=== PATIENT | male | born 1935 | race Caucasian/White ===

== ENCOUNTER 2023-01-12 06:25 | Inpatient (IN) | payer MEDICARE, OTHER ==
[~2023-01-12] VITALS: Ht 190.5 cm; Wt 88.3 kg
[~2023-01-12 06:25] MED LIST: ADVIL PM CAPLE1 EACH PO; ALEVE220 MG PO; AMIODARONE HCL200 MG PO; APRISO0.375 GM PO; ASACOL HD800 MG PO; ASPIR 8181 MG PO; ATORVASTATIN CA10 MG PO; CEFDINIR300 MG PO; CENTRUM SILVER1 EAC3 PO; CIPRO500 MG PO; CIPROFLOXACIN500 MG PO; COUMADIN5 MG PO; DIGITEK125 MCG PO; DOXYCYCLINE HY100 M3 PO; FINASTERIDE5 MG PO; FLONASE ALLERG9.9 ML NAS; FLUTICASONE-SA1 EAC4 INH; I-VITE TABLET1 EAC1 PO; LEVALBUTEROL TA15 GM INH; LOPERAMIDE2 MG PO; METOPROLOL SUCC25 MG PO; METOPROLOL SUCC50 MG PO; METRONIDAZOLE500 MG PO; NYSTATIN100000 UN1 MM; OMEPRAZOLE20 MG PO; PREDNISONE10 MG PO; TYLENOL SO500 MG/15 PO; VENTOLIN HFA18 GM INH; WARFARIN SODIUM5 MG PO; ZYRTEC10 M3 PO
[2023-01-12] MEDS ORDERED: TRELEGY ELLIPT1 EACH INH (06:52)
[2023-01-12] MEDS ORDERED: TOPROL XL50 MG PO (07:25)
--- NOTE | 2023-01-12 07:27 | EKG ---
[facility] [address] [place], [place] [address] Signed Sinus tachycardia with occasional premature ventricular complexes Left axis deviation Incomplete right bundle branch block Inferior infarct , age undetermined ST \T\ T wave abnormality, consider anterolateral ischemia Abnormal ECG No previous ECGs available Confirmed by GASTON SAEED MD ([id number]) on 01/12/2023 7:27:37 AM Electronically Signed By: GASTON SAEED MD 01/12/23 0727 PATIENT NAME: LINDSAY MOSQUEDA ROSA Electrocardiogram DATE OF : 39 PHYSICIAN: GASTON SAEED MD REPORT #: [id number] REPORT IS CONFIDENTIAL AND NOT TO BE RELEASED WITHOUT AUTHORIZATION
--- NOTE | 2023-01-12 10:00 | NUR ---
PT BROUGHT OVER TO ROOM 108 ON MED SURGE VIA STRETCHER BY THIS RN, PT REMIANED ON CARDIAC MONITORING AND O2 WHILE TRANSPORTED. RECEIVED BEDSIDE REPORT FROM ANAHI El RN. PTS GRANDDAUGHTER ACCOMPANIED PT TO THE ROOM TO ASSIST IN ANSWERING QUESTIONS, PT IS ALERT AND ORIENTED AND ANSWERS QUESTIONS APPROPRIATLEY. BELONGSINGS SENT IN BAG.
[2023-01-12 10:08] VITALS: BP 101/68
--- NOTE | 2023-01-12 10:30 | NUR ---
PLACED ON TELE #4
[2023-01-12] MEDS ORDERED: LEVALBUTER0.63 MG/3 INH (11:13)
--- NOTE | 2023-01-12 11:31 | NUR ---
PT'S FAMILY MEMBERS HAVE LEFT, PT BELIEVES HE "MAY WANT TO TAKE A NAP" PT HAS CALL LIGHT IN REACH AND INSRUCTED ON USE, RAILS UP. REMAINS ON TELE AND OXYGEN 3L OXYMASK.
--- NOTE | 2023-01-12 12:36 | NUR ---
PT HAS REPORTED HE WAS ABLE TO TAKE A NAP, HAS LUNCH TRAY AND IS ACTIVELY EATING AT THIS TIME, CONTINUES TO DENY NEED TO VOID. DENIES NAUSEA OR PAIN.
[2023-01-12 14:27] VITALS: BP 108/70
--- NOTE | 2023-01-12 14:51 | NUR ---
in room to start iv abx, pt was asleep but woke up easily. asked pt if feels like he can void yet says "don't think so don't feel like it" pt has been given some water, per Dr ugarte pt candrink when thirsty but not to give too much fluids due to pt's chf status, pt's muscos membranes are dry. pt is going to stay up to read.
[2023-01-12 17:50] VITALS: BP 112/96
--- NOTE | 2023-01-12 18:11 | NUR ---
pt had finished eating about 60% dinner and asked to use urinal. this RN in room as pt asked to "get up and walk around" pt does very well with standby assist. uses his cane and needs assistance getting into a standing position but ambulated in hao with slow gait, has non skid socks on for safety. pt was able to void 300 ml dark urine, sent sample to lab as pt has not voided all day. pt back to bed to read some more. call light in reach. oxymask in place, pt has bee sating in low 90's on room air.
--- NOTE | 2023-01-12 18:21 | NUR ---
PT ADMITTED FROM THE ER THIS MORNING AROUND 1000 FOR CHF, PNEUMONIA. PT BNP OVER 3000, CONCERNS ABOUT LOW BP IN ER AND HERE SO NO DIRUETICS GIVEN. PT GIVEN IV ABX, HAS BEEN GIVEN ORAL FLUIDS IN MODERATION DUE TO DRY MOUTH UNABLE TO VOID SINCE 0400, PT DID VOID TONIGHT AROUND 1800 DARK CONCENTRATED, SAMPLE SENT TO LAB. PT DID AMBULATE IN ROOM WITH CANE STANDBY ASSIST. PT ALERT AND ORIENTED. HAS OXY MASK INITALLY ON 3 L, BUT HAS BEEN ABLE TO BE ON ROOM AIR AT TIMES WITH SATS 92-93%.
[2023-01-12 20:45] VITALS: BP 110/53
--- NOTE | 2023-01-12 20:55 | NUR ---
PT ASSESSMENT COMPLETE. PT DENIES PAIN, NAUSEA, OR SOB. PT WITH OCCASIONAL MOIST, PRODUCTIVE COUGH THROUGHOUT ASSESSMENT. MUCHOUS IS THICK IN CONSISTENCY AND BROWN IN COLOR. LUNG SOUNDS WITH CRACKLES THROUHGOUT, RHONCI IN BILATERAL UPPER LOBES THAT CLEARS WITH COUGH. PT SA02 93% ON RA. TELE # [address] AFIB[address] HR 80'S. IV FLUSHED WITH 10 ML NS. WNL. VS OBTAINED, WNL. POC FOR THIS SHIFT DICUSSED WITH PT. PT DENIES QUESTIONS OR CONCERNS AT THIS TIME. ICE WATER REFILLED PER PT REQUEST. CALL LIGHT IN REACH.
--- NOTE | 2023-01-12 22:03 | NUR ---
NOTIFIED OF PT INABILITY TO VOID AND ADVENTITIOUS LUNG SOUNDS. NO NEW ORDERS RECEIVED.
--- NOTE | 2023-01-12 23:24 | NUR ---
PATIENT CALLED. URINAL EMPTIED 5OOML DARK URINE.
--- NOTE | 2023-01-12 23:27 | NUR ---
PT ROUNDING. PT RESTING IN BED AWAKE. STATES THAT HE IS GOING TO SLEEP SOON. REQUESTS THAT THE LIGHT BE LEFT ON. DENIES NEEDS AT THIS TIME. CALL LIGHT IN REACH.
[2023-01-13 01:50] VITALS: BP 101/59
--- NOTE | 2023-01-13 02:00 | NUR ---
PT ASSESSMENT COMPLETE. PT RESTING IN BED WITH EYES CLOSED, WAKES EASILY WHEN PRIVATE DETECTIVE AND TRACK LAMINATING MACHINE TENDER ENTER THE ROOM. PT DENIES PAIN OR NAUSEA. STATES THAT HE FEELS LIKE COUGH AND LUNGS HAVE IMPROVED FROM EARLIER, DENIES SOB. LUNG SOUNDS CLEAR TO BILATERAL UPPER LOBES, CRACKLES TO BILATERAL LOWER LOBES. PT WITH OCCASIONAL MOIST COUGH DURING ASSESSMENT, SLIGHTLY IMPROVED IN FREQUENCY FROM EARLIER, PT CONTINUES TO HAVE THICK BROWN SPUTUM PRODUCTION. TELE #[address], HR IRREGULAR, 70'S. IV FLUSHED WITH 10 ML NS, SCHEDULED MEDICATION ADMINISTERED. PT DENIES FURTHER NEEDS AT THIS TIME. CALL LIGHT IN REACH.
--- NOTE | 2023-01-13 04:30 | NUR ---
PT ROUNDING. IV PUMP ALARMING. PT RESTING WITH EYES CLOSED. RESPIRATIONS EVEN AND UNLABORED. SAO2 93% ON 2 LPM. DOES NOT WAKE WHILE LAUNCH OPERATOR AT BEDSIDE. CALL LIGHT IN REACH.
[2023-01-13 06:06] VITALS: BP 106/58
--- NOTE | 2023-01-13 07:30 | NUR ---
REPORT RECEIVED FROM MERVIN HICKMAN. PT AWAKE IN BED READING A BOOK. DENIES NEEDS ATT.
--- NOTE | 2023-01-13 11:00 | NUR ---
ASSISED PT TO BATHROOM. PT HAS STEADY GAIT WITH STANDBY ASSIST, USES CANE TO AMBULATE. PT IS BACK IN BED WITH CALL LIGHT IN REACH.
--- NOTE | 2023-01-13 11:55 | NUR ---
PT CALLED, IV WAS LEAKING, CHANGED DRESSING, IV IS WORKING WELL NOW.
--- NOTE | 2023-01-13 12:38 | NUR ---
MED REC COMPLETE
[2023-01-13] MEDS ORDERED: MECLIZINE HCL25 MG PO (12:39)
--- NOTE | 2023-01-13 13:57 | NUR ---
ASSITED PT UP TO RESTROOM. SPOKE WITH DR ABOUT THE BLOODY SPUTUM. X3 IN LAST 6 HOURS. ADVISED TO NOT COUGH SO HARD.
--- NOTE | 2023-01-13 14:36 | NUR ---
PT ALERT, ORIENTED AND VISITING WITH HIS DAUGHTER AT BS. PT FEELS MUCH IMPROVED, MENTIONED THAT THE LAST FEW WEEKS HAVE SHOWN HIM SOME THINGS ABOUT LIFE AND HIMSELF. THANKFUL FOR CARE, PT SEEMS IN GOOD SPIRITS. I GAVE G.POST, HAD PRAYER AND BLESSING. WILL FOLLOW
--- NOTE | 2023-01-13 14:42 | NUR ---
SPOKE WITH PATIENT ABOUT THE DISCHARGE PLAN. CHECKED PATIENT'S DEMOGRAPHICS AND THEY WERE CORRECT. PATIENT LIVES IN A HOUSE WITH HIS . PATIENT IS NOT INTERESTED IN SNF. PATIENT CAN DO HIS ADLS AND CAN DRIVE ONLY IN THE DAYTIME. PATIENT HAS BOTH A WHEELCHAIR AND A CANE. PATIENT USES CPAP ON ROOM AIR AT NIGHT.THE PATIENTIS BEING TREATED FOR PNEUMOMIA AND MAY GO HOME TOMMORROW. PATIENT HAS FAMILY WHO WILL HELP WITH HIS CARE NEEDED.
[2023-01-13 14:58] VITALS: BP 101/64
[2023-01-13 17:15] VITALS: BP 115/78
--- NOTE | 2023-01-13 17:57 | NUR ---
PT AMBULATED IN [place]. TIGHTNESS IN LOW ABD REPORTED. ADVISED TO TRY TO URINATE AGAIN.
--- NOTE | 2023-01-13 20:24 | NUR ---
pt AWAKE READING BOOK. SCHEDULED AND PRN NEB TREATMENT STARTED. NO SOB REPORTED. CALL LIGHT IN REACH.
[2023-01-13 20:37] VITALS: BP 118/75
--- NOTE | 2023-01-13 20:58 | NUR ---
PT ASSESSMENT COMPLETE. PT DENIES PAIN, NAUSEA, OR SOB. OCCASIONAL MOIST, PRODUCTIVE COUGH CONTINUES THROUGH ASSESSMENT. PT PRODUCTING THICK RED TINGED SPUTUM. SA 02 94% ON RA. LUNG SOUNDS CLEAR WITH RHONCI IN BILATERAL UPPER LOBES. CRACKLES AUSCULTATED TO BILATERAL LOWER LOBES. TELE # [address], HR IRREGULAR, 70'S. IV FLUSHED WITH 10 ML NS. WNL. GOOD BLOOD RETURN NOTED. SCHEDULED AND PRN MEDCIATIONS ADMINISTERED. PT ASSISTED TO BATHROOM AND BACK TO BED WITH SBA AND CANE, TOLERATED WELL. PT DENIES FURTHER NEEDS AT THIS TIME. CALL LIGHT IN REACH.
--- NOTE | 2023-01-13 22:15 | NUR ---
PT ROUNDING. PT RESTING IN BED ON HIS SIDE. STATES THAT HE IS READY FOR BED. BRIGHT LIGHTS TURNED OFF. PT DENIES FURTHER NEEDS. CALL LIGHT IN REACH.
--- NOTE | 2023-01-13 23:50 | NUR ---
PT ROUNDING. PT RESTING IN BED AWAKE. DENIES NEEDS. OXYMASK IN PLACE, 02 @ 2 LPM. CALL LIGHT IN REACH.
--- NOTE | 2023-01-14 01:48 | NUR ---
PT RESTING IN BED WITH EYES CLOSED. OXYMASK IN PLACE APPROPRIATELY. RESPIRATIONS EVEN AND UNLABORED. PT APPEARS TO BE ASLEEP. CALL LIGHT INREACH..
--- NOTE | 2023-01-14 02:15 | NUR ---
PT ASSESSMENT COMPLETE. PT RESTING IN BED AWAKE, READING HIS BOOK. PT REPORTS PAIN 2/10, HEADACHE. PRN ADMINISTERED, SEE EMAR. PT DENIES NAUSEA OR SOB. STATES THAT HIS COUGH HAS BECOME MORE DRY AND THAT HE HAD A BIT OF A COUGHING FIT THAT WOKE HIM UP. LUNG SOUNDS CLEAR IN R UPPER LOBE, CRACKLES TO R LOWER LOBE. LUNG SOUNDS DIM TO L UPPER LOBE AND DIM WITH CRACKLES TO L LOWER LOBE. TELE # [address], AFIB. IV FLUSHED WITH 10 ML NS. SCHEDULED MEDICATION ADMINISTERED. PT ICE WATER REFILLED. PT DENIES FURTHER NEEDS AT THIS TIME. CALL LIGHT IN REACH.
[2023-01-14 05:15] VITALS: BP 130/62
--- NOTE | 2023-01-14 07:35 | NUR ---
PT RESTING IN BED FOR BEDSIDE REPORT FROM VICK JEFFRIES, PT ALERT AND ORIENTED, HE HAS NO REPORTS OF PAIN/NAUSEA. NO DISTRESS NOTED.
[2023-01-14 09:05] VITALS: BP 119/67
--- NOTE | 2023-01-14 09:06 | NUR ---
PT IN BED TALKING TO DR. NOYOLA AGREEABLE AND WANTING TO GO HOME. VS STABLE. AB STARTED.
[2023-01-14] MEDS ORDERED: PREDNISONE20 MG PO (09:17)
[2023-01-14] MEDS ORDERED: DOXYCYCLINE HY100 M3 PO (09:18)
--- NOTE | 2023-01-14 10:24 | NUR ---
LINDSAY WITH PHARM IS IN PT ROOM TO DISCUSS DISCHARGE MEDICATIONS AND GIVEN EDUCATIONS
--- NOTE | 2023-01-14 11:19 | NUR ---
PT GIVEN EDUCATION PACKET WITH DAUGHTER ZOË AT BEDSIDE, DISCUSSED CHF, DIET, MEDICATIONS, HOME CARE AND MONITORING. CHF PACKET WITH MAGNETS PROVIDED. DISCUSSED MEDICAITONS, LAST DOSE, NEXT DOSE. V/S STABLE. ALL QUESTIONS ANSWERED. NO FURTHER CONCERNS, PT OFFERED SHOWER BEFORE DISCHARGE, PT DECLINED TO TAKE A SHOWER IN HOSPITAL.
--- NOTE | 2023-01-14 11:28 | NUR ---
PT EXPRESSED HIS EAGERNESS TO DC HOME TODAY! FEELING MUCH BETTER, WAITING FOR DAUGHTER ZOË FOR RIDE. GAVE MIRNA, PT REQUESTED CHANGE BE MADE REGARDING NOTIFIATIONS. PT WOULD LIKE HIS DAUGHTER ZOË FIRST: [phone] G.DAUGHTER TOMY PAGE NEXT: [phone]. WILL EMAIL REKHA EUBANKS WITH CHANGES. CORNELIO SPANN
== END 2023-01-14 11:18 | disposition home or self-care (01) | DRG 193 ==
LOC: ED 06:25 → MS 08:48
PROVIDERS: ADMIT Internal Medicine; ATTEND Internal Medicine
DX: J13 Pneumonia due to Streptococcus pneumoniae (principal); I50.23 Acute on chronic systolic (congestive) heart failure; J96.01 Acute respiratory failure with hypoxia; J44.0 Chronic obstructive pulmonary disease with (acute) lower respiratory infection; I48.20 Chronic atrial fibrillation, unspecified; Z20.822 Contact with and (suspected) exposure to COVID-19; N40.0 Benign prostatic hyperplasia without lower urinary tract symptoms; I25.10 Atherosclerotic heart disease of native coronary artery without angina pectoris; M19.90 Unspecified osteoarthritis, unspecified site; E78.5 Hyperlipidemia, unspecified; K62.89 Other specified diseases of anus and rectum; I27.20 Pulmonary hypertension, unspecified; Z90.49 Acquired absence of other specified parts of digestive tract; Z98.890 Other specified postprocedural states; Z87.891 Personal history of nicotine dependence; Z95.1 Presence of aortocoronary bypass graft; Z99.81 Dependence on supplemental oxygen; Z88.0 Allergy status to penicillin; Z79.01 Long term (current) use of anticoagulants; Z79.899 Other long term (current) drug therapy
CPT/HCPCS: 36415; 71045; 80048; 80053; 80162; 81001; 83605; 83880; 84484; 85025; 85610; 85730; 87040; 87502; 93005; 93010; 94640; 94760; 96365; 99285-25; A9270; J0456; J0692; J0696; J2920; J7060; J7512; U0003